=== PATIENT | male | born 1955 | race Caucasian/White ===

== ENCOUNTER 2018-07-26 09:20 | Emergency (ER) | payer MEDICAID ==
[~2018-07-26] VITALS: Ht 172.7 cm; Wt 69.9 kg
--- NOTE | 2018-07-26 09:25 | NUR ---
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
--- NOTE | 2018-07-26 09:30 | NUR ---
PT LABS DRAWNED AND SENT TO LAB, EKG DONE. AWAITING RESULTS.
[2018-07-26] MEDS ORDERED: FOLIC ACID 1 MG TABLET ONE (09:38)
[2018-07-26 09:44] LABS: BASOPHILS % (AUTO) 0.5 % (0.0-2.0); EOSINOPHILS % (AUTO) 0.7 % (0.0-6.0); HEMATOCRIT 43 % (39-51); HEMOGLOBIN 14.9 g/dL (13.5-17.5); LYMPHOCYTES # (AUTO) 1.6 /CMM (0.8-4.8); LYMPHOCYTES % (AUTO) 27.1 % (20.0-44.0); MEAN CORPUSCULAR HGB CONC 35 g/dl (31.0-36.0); MEAN CORPUSCULAR VOLUME 102 fL (80-96); MONOCYTES # (AUTO) 0.5 /CMM (0.1-1.30); MONOCYTES % (AUTO) 8.2 % (2.0-12.0); NEUTROPHILS # (AUTO) 3.7 /CMM (1.8-8.9); NEUTROPHILS % (AUTO) 63.5 % (43.0-81.0); PLATELET COUNT (AUTO) 225 /CMM (150-450); RED BLOOD CELL COUNT(AUTO) 4.24 MIL/uL (4.5-6.0); WHITE BLOOD COUNT (AUTO) 5.8 K/uL (4.3-11.0)
[2018-07-26 09:52] LABS: CALCIUM, SERUM 8.9 mg/dL (8.5-10.1); CARBON DIOXIDE 22 mmol/L (21-32); CHLORIDE 94 mmol/L (98-107); CREATININE 1.2 mg/dL (0.6-1.3); GLUCOSE 132 mg/dL (74-106); POTASSIUM 3.2 mmol/L (3.5-5.1); SODIUM SERUM 135 mmol/L (136-145); UREA NITROGEN, BLOOD 8 mg/dL (7-18)
[2018-07-26 09:57] LABS: ALANINE AMINOTRANSFERASE 59 U/L (12-78); ALBUMIN 3.7 g/dL (3.4-5.0); ALCOHOL, BLOOD < 3 mg/dL (0-0); ALKALINE PHOSPHATASE 86 U/L (46-116); ASPARTATE AMINOTRANSFERASE 58 U/L (15-37); BILIRUBIN,DIRECT 0.3 mg/dL (0.0-0.2); BILIRUBIN,TOTAL 1.5 mg/dL (0.2-1.0); TOTAL PROTEIN, SERUM 7.9 g/dL (6.4-8.2)
[2018-07-26] MEDS ORDERED: PHARMACY ADD 1 AMP MVI TO IVF DAILY ONE BAG XX PRN (10:00)
[2018-07-26] MEDS ORDERED: FOLIC ACID 1 MG TABLET PO ONE (10:00)
[2018-07-26] MEDS ORDERED: phenytoin SODIUM IV 1,000 MG in IV NS 0.9% 100 ML IV ONE (10:00)
[2018-07-26] MEDS ORDERED: MVI ADULT 10ML VIAL = 1AMP 10 ML in IV NS 0.9% 1,000 ML IV ONE (10:00)
[2018-07-26] MEDS ORDERED: IV NS 0.9% 1,000 ML BAG IV ONE (10:00)
--- NOTE | 2018-07-26 10:08 | NUR ---
PT IS WHEELED TO CT SCAN VIA [facility].
--- NOTE | 2018-07-26 10:31 | NUR ---
PT IS BACK FROM THE CT SCAN. AWAITING RESULT.
[2018-07-26 11:30] VITALS: BP 124/81
--- NOTE | 2018-07-26 11:54 | NUR ---
Patient discharged to home in stable condition. Written and verbal after care instructions given. Patient verbalizes understanding of instruction. IV removed. Catheter intact and site benign. Pressure and 4x4 applied to site. No bleeding noted.
== END 2018-07-26 11:56 | disposition home or self-care (01) ==
LOC: ER 09:23
DX: R56.9 Unspecified convulsions (principal); F10.10 Alcohol abuse, uncomplicated; Y90.0 Blood alcohol level of less than 20 mg/100 ml
CPT/HCPCS: 36415; 70450; 71045; 80048; 80076; 85025; 96365; 96368; 99284; A4606; G0480; J1165; J7030 ×3; Z7610

== ENCOUNTER 2018-12-13 13:06 | Emergency (ER) | payer MEDICAID ==
[~2018-12-13] VITALS: Ht 172.7 cm; Wt 72.6 kg
--- NOTE | 2018-12-13 14:45 | NUR ---
PT BROUGHT IN FROM STREET WITH C/C BIB RA,SLEEPING INFRONT OF APARTMENT, ETOH BREATH, HOLDING ALCOHOL BOTTLE
[2018-12-13 15:12] VITALS: BP 151/98
== END 2018-12-13 15:12 | disposition home or self-care (01) ==
LOC: ER 13:10
DX: F10.129 Alcohol abuse with intoxication, unspecified (principal); Z60.2 Problems related to living alone; Y90.9 Presence of alcohol in blood, level not specified

== ENCOUNTER 2019-05-07 13:37 | Emergency (ER) | payer MEDICAID ==
[~2019-05-07] VITALS: Ht 172.7 cm; Wt 69.9 kg
--- NOTE | 2019-05-07 14:00 | NUR ---
CELESTINO, FROM THE STREET, PER EMS POSSIBLE FARIDAZURE, FOUND VODKA BOTTLE NEXT TO PT. ON ROOM AIR BREATHING EVENLY AND UNLABORED. KEPT COMFORTABLE. WILL CONTINUE TO MONITOR ACCORDINGLY.
[2019-05-07 14:26] LABS: BASOPHILS % (AUTO) 0.5 % (0.0-2.0); EOSINOPHILS % (AUTO) 0.1 % (0.0-6.0); HEMATOCRIT 43 % (39-51); HEMOGLOBIN 14.5 g/dL (13.5-17.5); LYMPHOCYTES # (AUTO) 0.7 /CMM (0.8-4.8); LYMPHOCYTES % (AUTO) 9.7 % (20.0-44.0); MEAN CORPUSCULAR HGB CONC 34 g/dl (31.0-36.0); MEAN CORPUSCULAR VOLUME 107 fL (80-96); MONOCYTES # (AUTO) 0.3 /CMM (0.1-1.30); MONOCYTES % (AUTO) 4.9 % (2.0-12.0); NEUTROPHILS # (AUTO) 5.7 /CMM (1.8-8.9); NEUTROPHILS % (AUTO) 84.8 % (43.0-81.0); PLATELET COUNT (AUTO) 166 /CMM (150-450); RED BLOOD CELL COUNT(AUTO) 4.02 MIL/uL (4.5-6.0); WHITE BLOOD COUNT (AUTO) 6.7 K/uL (4.3-11.0)
[2019-05-07] MEDS ORDERED: IV NS 0.9% 1,000 ML BAG IV ONE (14:30)
[2019-05-07 14:47] LABS: CALCIUM, SERUM 9.1 mg/dL (8.5-10.1); CREATININE 1.1 mg/dL (0.6-1.3); POTASSIUM 3.3 mmol/L (3.5-5.1)
[2019-05-07 14:48] LABS: MAGNESIUM 1.4 mg/dL (1.8-2.4)
[2019-05-07] MEDS ORDERED: MAGNESIUM OXIDE 400 MG TABLET PO ONE (15:30)
[2019-05-07] MEDS ORDERED: POTASSIUM CHLORIDE 20 MEQ TAB.PRT.SR PO ONE ×2 (15:30→15:37)
[2019-05-07 17:14] VITALS: BP 125/81
--- NOTE | 2019-05-07 17:15 | NUR ---
Patient given written and verbal discharge instructions. Patient verbalizes understanding of instructions. Patient is ambulatory with steady gait. Refuses offer of [facility] placement. Patient given list of available shelters in surrounding area. left with appropriate clothing, tap card and food provided.
== END 2019-05-07 17:15 | disposition home or self-care (01) ==
LOC: ER 15:43
DX: E86.0 Dehydration (principal); E87.6 Hypokalemia; E83.42 Hypomagnesemia; F10.20 Alcohol dependence, uncomplicated; R56.9 Unspecified convulsions; R00.0 Tachycardia, unspecified; Y90.0 Blood alcohol level of less than 20 mg/100 ml; Z59.0 Homelessness; Z60.2 Problems related to living alone
CPT/HCPCS: 36415; 80048; 80305; 80307; 83735; 85025; 96360; 99283; J7030; G0480

== ENCOUNTER 2020-01-06 08:05 | Emergency (ER) | payer MEDICAID ==
[~2020-01-06] VITALS: Ht 170.2 cm; Wt 68.0 kg
[2020-01-06 08:11] VITALS: BP 140/90
--- NOTE | 2020-01-06 10:12 | NUR ---
Patient given written and verbal discharge instructions. Patient verbalizes understanding of instructions. Patient is ambulatory with steady gait. Refuses offer of [facility] placement. Patient given list of available shelters in surrounding area.
== END 2020-01-06 10:14 | disposition home or self-care (01) ==
LOC: ER 08:10
DX: F10.129 Alcohol abuse with intoxication, unspecified (principal); R41.82 Altered mental status, unspecified; R56.9 Unspecified convulsions; Y90.9 Presence of alcohol in blood, level not specified; Z60.2 Problems related to living alone
CPT/HCPCS: 70450-TC